=== PATIENT | female | born 1985 | race African-American/Black ===

== ENCOUNTER 2018-05-12 23:50 | Emergency (ER) | payer MEDICARE ==
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
[2018-05-13 01:28] VITALS: BP 131/69
== END 2018-05-13 02:20 | disposition home or self-care (01) ==
LOC: ED 23:50
DX: S60.221A Contusion of right hand, initial encounter (principal); X58.XXXA Exposure to other specified factors, initial encounter; Y92.009 Unspecified place in unspecified non-institutional (private) residence as the place of occurrence of the external cause; F17.200 Nicotine dependence, unspecified, uncomplicated
CPT/HCPCS: 99282